=== PATIENT | male | born 1970 | race Caucasian/White ===

== ENCOUNTER 2021-10-01 07:45 | Outpatient (CLI) | payer OTHER | END 2021-10-01 07:46 | disposition home or self-care (01) | LOC: NUCLEAR 07:45 | PROVIDERS: ATTEND Internal Medicine | DX: M34.9 Systemic sclerosis, unspecified (principal) ==

== ENCOUNTER 2022-06-14 11:20 | Outpatient (CLI) | payer OTHER | END 2022-06-14 12:00 | disposition home or self-care (01) | LOC: NUCLEAR 11:20 | DX: I50.20 Unspecified systolic (congestive) heart failure (principal); Z51.89 Encounter for other specified aftercare ==